=== PATIENT | male | born 1940 | race Caucasian/White ===

== ENCOUNTER 2021-11-16 11:59 | Inpatient (IN) | payer OTHER ==
[~2021-11-16] VITALS: Ht 177.8 cm; Wt 107.6 kg
[2021-11-16 12:02] VITALS: BP 91/40
[2021-11-16 12:44] LABS: BASOPHILS 1.1 % (0.0-2.0); HEMATOCRIT 36.4 % (42.0-52.0); LYMPHOCYTES 16.4 % (24.0-44.0); MCH 28.7 pg (26.0-34.0); MCHC 33.1 g/dL (28.0-37.0); MCV 86.7 fL (80.0-100.0); PLATELET COUNT 346 thou/uL (150-400); POLYS 62.5 % (36.0-66.0); RDW 16.4 % (10.5-14.5); WBC 6.4 thou/uL (4.0-11.0)
--- NOTE | 2021-11-16 12:48 | NUR ---
PT'S DAUGHTER MI-[phone]
[2021-11-16 12:52] LABS: CALCIUM 7.9 mg/dL (8.5-10.1); CREATININE 3.5 mg/dL (0.7-1.3); POTASSIUM 4.6 mmol/L (3.5-5.1)
[2021-11-16 13:06] LABS: ALBUMIN 3.2 g/dL (3.4-5.0); TOTAL BILIRUBIN 0.3 mg/dL (0.2-1.0); TOTAL PROTEIN 6.9 g/dL (6.4-8.2)
[2021-11-16 15:05] VITALS: BP 122/59
[2021-11-16 16:00] VITALS: BP 126/62
--- NOTE | 2021-11-16 18:02 | NUR ---
PATIENT ADMIT TO UINT AT 1600. A/O X4. HARD HEARING. RA. DENIES PAIN. WILL KEEP MONITOR.
[2021-11-16 19:51] VITALS: BP 115/47
--- NOTE | 2021-11-16 20:39 | EKG ---
[address] [place] [address] ELECTROCARDIOGRAM REPORT Name: ROBBY JOHNS Room #: 362-P ADM IN M.R.#: [id number] Admission: 11/16/21 Attend Phys: Jasmin Dee Discharge: Date of : 44 Report #: [id number] [facility] ED Test Date: 2021-11-16 Test Time: 12:44:13 Pat Name: ROBBY JOHNS Department: Room: 362 Gender: M Site Supervisor: allison : 1940 Requested By: La Nena Huynh Order Number: [id number] MD: Montana Hankins Measurements Intervals Anderson Rate: 68 P: 42 HI: 230 QRS: -48 QRSD: 142 T: 52 QT: 427 QTc: 455 Interpretive Statements Sinus rhythm Prolonged HI interval Right bundle branch block Inferior infarct, old No previous ECG available for comparison Electronically Signed On 11-16-2021 20:39:44 [employer]ESE [employer]UTOR by Montana Hanikns [email or web address] <ELECTRONICALLY SIGNED> By: Montana Hankins MD, [facility] 11/16/212038 1244 1244 Montana Hankins MD, FACC /EPI
--- NOTE | 2021-11-17 00:37 | NUR ---
PT ALERT AND ORIENTED X4 BUT IS FORGETFUL AND POOR HISTORIAN REGARDING HIS HOME MEDICATIONS AND PMHX. VSS AFEBRILE. UNLABORED ON RA. LUNGS SOUND DIMINISHED WITH WHEEZES. NO C/O PAIN. REFUSED SLEEPING PILL. NOTIFIED SLAB GRINDER WE WERE UNABLE TO GET LIST OF HOME MEDICATIONS FOR PT. I ATTEMPTED TO GET A LIST FROM PT'S DAUGHTER. SHE STATED SHE WAS NOT AT HOME DUE TO SHE THINKS SHE HAS COVID. HER MOTHER HAS NO PHONE FOR US TO CALL HER FOR THE LIST OF PT MEDS. PT'S DAUGHTER INSISTED A LIST WAS LEFT WITH THE STAFF. I CALLED ER NO LIST FOUND IN ANY OF THE FILES. NO LIST OF HOME MEDS LOCATED IN PT CHART OR IN HIS ROOM OR PERSONAL BELONGINGS. SLAB GRINDER NOTIFED WE WERE NOT ABLE TO GET A LIST. WILL HAVE DAY SHIFT ATTEMPT TO GET A LIST FROM [facility] [place] IN THE AM WHEN THEY ARE OPEN. BED DOWN. CALL LIGHT IN REACH. BED ALARM IS ON.
[2021-11-17 03:24] VITALS: BP 122/60
[2021-11-17 05:46] LABS: ABSOLUTE NEUTROPHILS 3.8 thou/uL (1.4-8.2); BASOPHILS 0.5 % (0.0-2.0); EOSINOPHILS 0.1 % (0.0-3.0); HEMATOCRIT 35.6 % (42.0-52.0); HEMOGLOBIN 11.8 gm/dL (14.0-18.0); LYMPHOCYTES 19.6 % (24.0-44.0); MCH 28.8 pg (26.0-34.0); MCHC 33.2 g/dL (28.0-37.0); MCV 86.9 fL (80.0-100.0); MONOCYTES 13.5 % (1.0-8.0); PLATELET COUNT 302 thou/uL (150-400); POLYS 66.3 % (36.0-66.0); RBC 4.09 mil/uL (4.50-6.00); RDW 16.4 % (10.5-14.5); WBC 5.7 thou/uL (4.0-11.0)
[2021-11-17 06:06] LABS: URINE BILIRUBIN NEGATIVE (Negative); URINE BLOOD NEGATIVE (Negative); URINE CLARITY CLEAR; URINE COLOR YELLOW; URINE GLUCOSE-RANDOM* NEGATIVE (Negative); URINE KETONES NEGATIVE (Negative); URINE LEUKOCYTES-REFLEX NEGATIVE (Negative); URINE NITRITE-REFLEX NEGATIVE (Negative); URINE PROTEIN (DIPSTICK) NEGATIVE (Negative); URINE SPECIFIC GRAVITY 1.025 (1.005-1.035); URINE UROBILINOGEN 0.2 E.U./dl (0.2-1.0)
[2021-11-17 06:11] LABS: ALBUMIN 2.9 g/dL (3.4-5.0); CALCIUM 7.3 mg/dL (8.5-10.1); POTASSIUM 4.7 mmol/L (3.5-5.1); TOTAL BILIRUBIN 0.2 mg/dL (0.2-1.0); TOTAL PROTEIN 6.9 g/dL (6.4-8.2)
[2021-11-17 06:13] LABS: URINE POTASSIUM-RANDOM* 24.8 mmol/L
[2021-11-17 06:15] LABS: INR 1.05; PROTIME 11.4 Seconds (10.5-12.1)
[2021-11-17 07:43] VITALS: BP 149/69
[2021-11-17 08:00] VITALS: BP 149/69
--- NOTE | 2021-11-17 08:37 | NUR ---
PT PROGRESSING TOWARDS D/C GOALS. VSS AFEBRILE. LUNGS CLEARER THIS AM WITH LESS WHEEZES. NO C/O PAIN. NO SOA. RR MILDLY ELEVATED 24. PT HAD QUIET UNEVENTFUL NIGHT.
[2021-11-17] MEDS ORDERED: ASA81BEC PO (13:51)
[2021-11-17] MEDS ORDERED: BREO ELLIPTA 21 EACH (13:53)
[2021-11-17] MEDS ORDERED: CARVEDILOL25 MG PO (13:53)
[2021-11-17] MEDS ORDERED: SPIRIVA18 MCG INH (13:54)
[2021-11-17] MEDS ORDERED: FUROSEMIDE 20 M20 M1 PO (13:54)
[2021-11-17] MEDS ORDERED: PRINIVIL40 MG PO (13:54)
[2021-11-17] MEDS ORDERED: PROAIR HFA8.5 GM INH (13:55)
[2021-11-17] MEDS ORDERED: SPIRONOLACTONE25 MG PO (13:56)
[2021-11-17] MEDS ORDERED: ROSUVASTATIN CAL5 MG PO (13:56)
[2021-11-17 15:25] VITALS: BP 110/52
--- NOTE | 2021-11-17 17:58 | NUR ---
Patient is alert and oriented x4. Patient is on enhanced precautions. He is on room air. Patients is MS/ Tele and he has run sinus rhythm this shift. Patient had his last BM on 11/16/21. Patient uses and urinal but has been incontinent one time this shift. Patient gets up with one assist a gait belt and a walker. Patient has 1+ pitting edema in his ankles. Patient has an IV in his right AC that is currently infusing with 75mL per hour. Patient will continue to be monitored.
[2021-11-17 18:40] VITALS: BP 128/61
[2021-11-17 19:11] VITALS: BP 125/58
[2021-11-18 04:19] VITALS: BP 138/61
--- NOTE | 2021-11-18 04:40 | NUR ---
patient aox4 makes needs known. patient on room air. patient uses a urinal. fall precaution in placee. patient denied pain or discomfort. patient in bed asleep at this time breathing regular and unlaboured.
[2021-11-18 07:04] VITALS: BP 144/68
[2021-11-18 07:36] LABS: ALBUMIN 2.5 g/dL (3.4-5.0); CALCIUM 7.4 mg/dL (8.5-10.1); CREATININE 1.5 mg/dL (0.7-1.3); PHOSPHORUS 3.9 mg/dL (2.5-4.9)
[2021-11-18 10:26] VITALS: BP 144/68
[2021-11-18 11:26] VITALS: BP 135/65
--- NOTE | 2021-11-18 11:35 | NUR ---
PT ADMITTED RELATED TO PT ADMITTED RELATED TO COVID. CM REVIEWED CHART AND SPOKE WITH CARE TEAM. CM ATTEMPTED PC TO PT'S ROOM WITH NO ANSWER. CM CALLED PT'S DTR MI . SHE INDICATED THAT HER PARENTS ARE VISITING HER AT HER HOME FROM [place], [place]. SHE INDICATED 1 STEP TO ENTER AND THAT HER PARENTS ARE STAYING IN INDEPENDENT ROOMS AT HER HOME. DTR INDICATED THAT SHE IS FEELING UNWELL AND IS CURRENTLY STAYING WITH A FRIEND TO NOT GET HER MOTHER SICK WHO HAS COPD. HER SPOUSE PT'S SON IN LAW IS AT [facility]. PT AND HIS ARE STAYING AT THE HOME WITH THEIR 16 AND 17 YR OLD GSONS. 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 PT IS ON RA. CARE TEAM INDICATING THAT LONS PT DOES OK WITH MOBILITY THIS DAY PT SHOULD BE MEDICALLY STABLE TO DC HOME TO SELF CARE. CM NOTIFIED DTR AND SHE EXPRESSED CONCERN ABOUT TRANSPORT HOME ASKING IF PT COULD STAY UNTIL TOMORROW. CM INDICATED THAT [facility] COULD BE ARRANGED. DTR DECLINED AND INDICATED SHE WOULD PICK PT UP AT 1600. CM NOTIFIED NURSE. CM FOLLOWING SHOULD ANY OTHER DC NEEDS ARISE.
[2021-11-18 15:04] VITALS: BP 135/65
--- NOTE | 2021-11-18 19:07 | HC ---
[facility] [place] [address] CONSULTATION Name: ROBBY JOHNS Room #: 452-P [facility] IN M.R.#: [id number] Admission: 11/16/21 Attend Phys: Jasmin Dee Discharge: 11/18/21 Date of : 44 Report #: [id number] THIS REPORT FOR: cc: FAM - No family physician/PCP FAM - No family physician/PCP Kunal Angeles MD ~ DATE OF SERVICE: 11/16/2021 INFECTIOUS DISEASE CONSULTATION REASON FOR CONSULTATION: I was asked to evaluate concerning COVID-19 pneumonia. HISTORY OF PRESENT ILLNESS: The patient is a 81-year-old with underlying asthma and COPD, along with coronary artery disease; has had over the last 10 days sinus congestion, sore throat and progressive shortness of breath. Along with this has been chest tightness, intermittent nonproductive cough. No hemoptysis or pleuritic chest pain. He has been COVID vaccinated x2, last in April of this past year. Most recent steroid and antibiotic use was in August. He is visiting from [place], living now with his daughter. No known COVID exposure. In addition to his progressive fatigue and shortness of breath, he started having loose stools last evening without nausea, vomiting or abdominal pain. Denies any fever, chills or sweats. Diarrhea has resolved. His weakness has progressed and he actually fell out of bed prior to his arrival. He was seen in the Emergency Room earlier today, where COVID screening was positive. Chest x-ray showed bilateral infiltrates, mostly in the bases. His creatinine was up to 3.5 with potassium of 4.6 and bicarbonate of 22. He was started on dexamethasone. He has remained afebrile. His O2 saturation has been 95%. PAST MEDICAL HISTORY: Asthma, COPD, coronary artery disease and congestive heart failure, subarachnoid hemorrhage, V-tach and GI bleed. ALLERGIES: None known. MEDICATIONS: As noted on his MAR, which were reviewed. FAMILY HISTORY: Negative for hypertension. SOCIAL HISTORY: Nonsmoker, no significant alcohol intake. 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 REVIEW OF SYSTEMS: Fourteen-point review was negative other than what has been described above. PHYSICAL EXAMINATION: GENERAL: He was afebrile, hemodynamically stable. He was alert and conversant, resting comfortably, lying in bed. Mild obesity. [facility] [address] [place] [address] CONSULTATION Name: ROBBY JOHNS Room #: 452-P [facility] IN M.R.#: [id number] Admission: 11/16/21 Attend Phys: Jasmin Dee Discharge: 11/18/21 Date of : 44 Report #: [id number] SKIN: Without rash or decubitus. No palpable adenopathy. HEENT: Eyes without scleral icterus. Mouth without mucositis. NECK: Supple. LUNGS: Few crackles at the bases bilaterally without consolidation. HEART: Regular without a murmur, gallop or rub. ABDOMEN: Protuberant, nontender. No hepatosplenomegaly or mass. GENITOURINARY: External genitalia without mass or lesion. RECTAL: Examination not performed. SPINE: Nontender. No CVA tenderness. EXTREMITIES: Without clubbing, cyanosis or edema. NEUROLOGIC: Cranial nerves were intact. Strength in the upper and lower extremities was symmetric, and within normal limits. PSYCHIATRIC: Mood without anxiety. LABORATORY DATA: Reviewed. MICROBIOLOGY: Reviewed. IMAGING: Chest x-ray reviewed. IMPRESSION: A 81-year-old with: 1. Underlying history of asthma and chronic obstructive pulmonary disease, presents with exacerbation of such, along with lower lobe community-acquired pneumonia, COVID-19 positive. 2. Acute kidney injury. His previous creatinines are not known. 3. Coronary artery disease with a history of congestive heart failure. 4. History of ventricular tachycardia. 5. History of subarachnoid hemorrhage. 6. History of gastrointestinal bleed. RECOMMENDATION: We will continue with corticosteroids and antibiotic therapy, pending culture results. Check urine antigen. Given the duration of his symptoms of around 10 days, along with his renal failure, we will hold off on remdesivir at this point. We will continue with corticosteroids not only for his COVID-19, possible pneumonitis, but COPD and asthma exacerbation. <ELECTRONICALLY SIGNED> By: Kunal Angeles MD 11/18/21 1907 2245 Kunal Angeles MD /nt
== END 2021-11-18 16:40 | disposition home or self-care (01) | DRG 177 ==
LOC: ER 11:59 → 4W 14:17 → EROBS 14:17 → 3W 15:48 → 4W 11-17 18:20
PROVIDERS: Emergency Medicine; Nurse Practitioner; Specialist; ADMIT Hospitalist; ATTEND Hospitalist
DX: U07.1 COVID-19 (principal); J12.82 Pneumonia due to coronavirus disease 2019; J96.00 Acute respiratory failure, unspecified whether with hypoxia or hypercapnia; N17.9 Acute kidney failure, unspecified; E46 Unspecified protein-calorie malnutrition; J44.0 Chronic obstructive pulmonary disease with (acute) lower respiratory infection; I50.9 Heart failure, unspecified; I25.10 Atherosclerotic heart disease of native coronary artery without angina pectoris; I95.9 Hypotension, unspecified; J45.909 Unspecified asthma, uncomplicated; Z82.49 Family history of ischemic heart disease and other diseases of the circulatory system; Z68.34 Body mass index [BMI] 34.0-34.9, adult; Z95.810 Presence of automatic (implantable) cardiac defibrillator; Z79.82 Long term (current) use of aspirin; Z79.899 Other long term (current) drug therapy
CPT/HCPCS: 10045; 10879